=== PATIENT | male | born 1975 | race Caucasian/White ===

== ENCOUNTER 2016-07-21 20:11 | Emergency (ER) | payer BC, OTHER ==
--- NOTE | 2016-07-21 20:15 | PDOC ---
History of Present Illness - General History Source: Patient Exam Limitations: No Limitations - History of Present Illness Initial Comments: 07/21/16 20:28 The patient is a 40 year old male with past medical history of hypertension, hyperlipidemia, and coronary artery disease (on Plavix) who presents to the ED with a laceration on his left hand, in between his thumb and pointer finger. The patient sustained the injury while cutting tiles about 4 hours ago. He reported profuse bleeding which has now subsided. He denies any recent illness, fever, chills, nausea, vomiting, diarrhea, cough, shortness of breath, or chest pain. PAST MEDICAL HISTORY: no significant history PAST SURGICAL HISTORY: no significant history FAMILY HISTORY: no pertinent history SOCIAL HISTORY: Pt lives with family and is employed. MEDICATIONS: reviewed ALLERGIES: As per nursing notes General: No fevers or chills, no weakness, no weight loss HEENT: No change in vision. No sore throat,. No ear pain CardioVascular: No chest pain or shortness of breath Respiratory:No cough, or wheezing. Gastrointestinal: no nausea, vomiting, diarrhea or constipation, No rectal bleeding Genitourinary: No dysuria, hematuria, or frequency Musculoskeletal: No joint or muscle pain or swelling Neurologic: No headache, vertigo, dizziness or loss of consciousness Psychiatric: nor depression Skin: Present: laceration on left hand No rashes or easy bruising Endocrine: no increased thirst or abnormal weight change Allergic: no skin or latex allergy All other systems reviewed and normal GENERAL: The patient is awake, alert, and fully oriented, in no acute distress. HEAD: Normal with no signs of trauma. EYES: Pupils equal, round and reactive to light, extraocular movements intact, sclera anicteric, conjunctiva clear. EXTREMITIES: Normal range of motion, no edema. NEUROLOGICAL: Normal speech, normal gait. PSYCH: Normal mood, normal affect. SKIN: Superficial laceration in web space between thumb and first finger of left hand. No active bleeding, neurovascularly intact. Warm, Dry, normal turgor , no rashes noted. <Areli Barros - Last Filed: 07/21/16 20:28> - General History Source: Patient Exam Limitations: No Limitations - History of Present Illness Initial Comments: 07/21/16 20:34 A portion of this note was documented by scribe services under my direction. I have reviewed the details of the note, within reason, and agree with the documentation. The case summary and management plan written by me. Assessment and plan: This is a 40-year-old male who came in complaining of a laceration in the webspace of his left hand. Patient is on blood thinners so there was a significant amount of bleeding however by the time he got here it had completely stopped. Laceration was cleaned and closed with Dermabond patient discharged. Procedure note laceration repair Laceration was cleaned with peroxide and then closed with Dermabond patient tolerated well <Eduar Woodruff I - Last Filed: 07/21/16 20:38> - General Chief Complaint: Laceration Stated Complaint: LACERATION Time Seen by Provider: 07/21/16 20:14 Past History <Areli Barros - Last Filed: 07/21/16 20:28> <Eduar Woodruff I - Last Filed: 07/21/16 20:38> - Past Medical History Allergies/Adverse Reactions: Allergies Allergy/AdvReac Type Severity Reaction Status Date / Time No Known Allergies Allergy Verified 07/21/16 20:22 Home Medications: Ambulatory Orders Aspirin [Aspirin EC] 81 mg PO DAILY 07/21/16 Atorvastatin Ca [Lipitor] 80 mg PO HS 07/21/16 Clopidogrel Bisulfate [Plavix -] 75 mg PO DAILY 07/21/16 Metoprolol Tartrate 25 mg PO BID 07/21/16 Review of Systems - Review of Systems Able to Perform ROS?: Yes All Other Systems: Reviewed and Negative <Areli Barros - Last Filed: 07/21/16 20:28> *DC/Admit/Observation/Transfer - Attestations Scribe Attestion: 07/21/16 20:31 Documentation prepared by Areli Barros, acting as medical office technician for Eduar Woodruff MD. <Areli Barros - Last Filed: 07/21/16 20:28> <Eduar Woodruff I - Last Filed: 07/21/16 20:38> Diagnosis at time of Disposition: Laceration of hand Qualifiers: Encounter type: initial encounter Laterality: left Qualified Code(s): S61.412A - Laceration without foreign body of left hand, initial encounter - Discharge Dispostion Disposition: HOME Condition at time of disposition: Stable - Referrals Referrals: STAFF,NOT ON [Primary Care Provider] - - Patient Instructions Printed Discharge Instructions: DI for Laceration Repair With Dermabond Additional Instructions: Read over and follow Dermabond instructions. The most important part of it is do not put any lotions creams or ointments on it and keep it dry for 48 hours. Return to the emergency department immediately with ANY new, persistent or worsening symptoms. Continue any medications as previously prescribed by your physician. You should follow up with your primary doctor as soon as possible regarding today's emergency department visit. . Please make sure your doctor reviews the results of your emergency evaluation. Thank you for coming to the Emergency Department today for your care. It was a pleasure to see you today. Please note that your evaluation is INCOMPLETE until you follow-up with your doctor.
[2016-07-21] MEDS ORDERED: DIPHTH,PERTUSS(ACELL),TET 0.5 ML DISP.SYRIN IM ONE (20:29)
[2016-07-21 20:30] VITALS: BP 156/108; PULSE 88; TEMP 97.7; BMI 32.9
== END 2016-07-21 20:45 | disposition home or self-care (01) ==
LOC: FER 20:11
PROC: 3E0234Z Introduction of Serum, Toxoid and Vaccine into Muscle, Percutaneous Approach (ICD-10-PCS; principal; 2016-07-21)
PROC: 0HQGXZZ Repair Left Hand Skin, External Approach (ICD-10-PCS; 2016-07-21)
DX: S61.412A Laceration without foreign body of left hand, initial encounter (principal); W45.8XXA Other foreign body or object entering through skin, initial encounter; Y93.89 Activity, other specified; Y92.9 Unspecified place or not applicable; Y99.0 Civilian activity done for income or pay; Z79.82 Long term (current) use of aspirin; I10 Essential (primary) hypertension; E78.5 Hyperlipidemia, unspecified; I25.10 Atherosclerotic heart disease of native coronary artery without angina pectoris; Z79.01 Long term (current) use of anticoagulants
CPT/HCPCS: 90715; 99282-25

== ENCOUNTER 2017-11-21 18:58 | Emergency (ER) | payer BC, OTHER ==
[2017-11-21] MEDS ORDERED: ACETAMINOPHEN 325 MG TABLET (FP) PO ONE (19:08)
[2017-11-21] MEDS ORDERED: ACETAMINOPHEN 325 MG TABLET (FP) ONE (19:14)
--- NOTE | 2017-11-21 19:19 | PDOC ---
History of Present Illness - General History Source: Patient Exam Limitations: No Limitations - History of Present Illness Initial Comments: 11/21/17 20:09 The patient is a 41 year old male with a significant PMH of hypertension, hyperlipidemia, and CAD who presents to the emergency department with right heller redness and pain for 2 days. The patient reports associated swelling with his heller redness. The patient describes his leg pain as sharp, a 10/10 in severity and worsened with movement. the patient reports that he took 2 tylenols this morning with little relief. The patient reports that he went jet skiing 2 days ago and there after he took a nap and woke up experiencing his right leg pain. The patient also reports associated chills, body aches, and fatigue. The patient states that he went to an urgent care facility yesterday by which he had an x- ray done with no specific findings. The patient also reports a suprapubic rash for 2 days as well. The patient denies any sort of trauma. He denies any numbness, weakness, or tingling sensation . he denies any nausea, vomit, diarrhea,constipation or urinary symptoms. He denies any chest pain, shortness of breath, headache and dizziness. The patient denies any other complaints. 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 MEDICATIONS: reviewed ALLERGIES: As per nursing notes General: (+)chills. No fevers. no weakness, no weight loss HEENT: No change in vision. No sore throat,. No ear pain CardioVascular: No chest pain or shortness of breath Respiratory:No cough, or wheezing. Gastrointestinal: (+)fatigue. no nausea, vomiting, diarrhea or constipation, No rectal bleeding Genitourinary: No dysuria, hematuria, or frequency Musculoskeletal: No joint or muscle pain or swelling Neurologic: No headache, vertigo, dizziness or loss of consciousness Psychiatric: nor depression Skin:(+)right leg/heller redness and itching. No easy bruising Endocrine: no increased thirst or abnormal weight change Allergic: no skin or latex allergy All other systems reviewed and normal GENERAL: The patient is awake, alert, and fully oriented, in no acute distress. HEAD: Normal with no signs of trauma. EYES: Pupils equal, round and reactive to light, extraocular movements intact, sclera anicteric, conjunctiva clear. EXTREMITIES: (+) right anterior leg,mid heller area of excoriation secondary to itchy rash patient had earlier. Surrounding erythema with increased warmth. no palpable abscess. No ascendancy lymphangitis Normal range of motion, neurovascular in tact NEUROLOGICAL: Normal speech, normal gait. PSYCH: Normal mood, normal affect. SKIN: Warm, Dry, normal turgor, no rashes or lesions noted. <Abbi Vallecillo - Last Filed: 11/21/17 20:09> - General History Source: Patient Exam Limitations: No Limitations - History of Present Illness Initial Comments: 11/21/17 19:36 A portion of this note was documented by scribe services under my direction. I have reviewed the details of the note, within reason, and agree with the documentation. The case summary and management plan written by me. Assessment and plan: This is a 41-year-old male who comes in with cellulitis of his anterior heller 1 day. Patient had a fever of 102.5. There is no associated ascending lymphangitis. Patient given bank and Zosyn. Lab work including CBC, comp, blood cultures, urine, urine culture were sent. 11/21/17 21:12 Reevaluation. Patient feels better after IV fluids Toradol and antibiotics. The extent of the erythema was drawn with a skin marker and patient was told that if it is not better in 48 hours or worse in 24 hours she needs to come back and expect to be admitted for IV antibiotics. Patient was given vancomycin and Zosyn here in the ED Patient discharged home on by mouth Bactrim 2 tablets twice a day. <Eduar Woodruff I - Last Filed: 11/21/17 21:17> - General Chief Complaint: Redness To Affected Area Stated Complaint: FEVER, RIGHT HELLER REDNESS/PAIN Time Seen by Provider: 11/21/17 19:19 Past History <Abbi Vallecillo - Last Filed: 11/21/17 20:09> - Past Medical History Cardiac Disorders: Yes (MS, STENT X2 MAY 2016) COPD: No HTN: Yes Hypercholesterolemia: Yes - Suicide/Smoking/Psychosocial Hx Smoking History: Never smoked Hx Alcohol Use: Yes (OCCASIONAL) Drug/Substance Use Hx: No Substance Use Type: None <Eduar Woodruff I - Last Filed: 11/21/17 21:17> - Past Medical History Allergies/Adverse Reactions: Allergies Allergy/AdvReac Type Severity Reaction Status Date / Time No Known Allergies Allergy Verified 11/21/17 19:08 Home Medications: Ambulatory Orders Aspirin [Aspirin EC] 81 mg PO DAILY 07/21/16 Atorvastatin Ca [Lipitor] 80 mg PO DAILY 07/21/16 Amlodipine Besylate [Norvasc -] 10 mg PO DAILY 11/21/17 Lisinopril 5 mg PO DAILY 11/21/17 Montelukast Sodium [Singulair] 10 mg PO DAILY 11/21/17 *Physical Exam - Vital Signs Last Vital Signs Temp Pulse Resp BP Pulse Ox 102.5 F H 95 H 16 111/74 99 11/21/17 19:05 11/21/17 19:05 11/21/17 19:05 11/21/17 19:05 11/21/17 19:05 <Abbi Vallecillo - Last Filed: 11/21/17 20:09> - Vital Signs Last Vital Signs Temp Pulse Resp BP Pulse Ox 102.5 F H 95 H 16 111/74 99 11/21/17 19:05 11/21/17 19:05 11/21/17 19:05 11/21/17 19:05 11/21/17 19:05 <Eduar Woodruff I - Last Filed: 11/21/17 21:17> ED Treatment Course - LABORATORY CBC & Chemistry Diagram: 11/21/17 19:30 11/21/17 19:30 - ADDITIONAL ORDERS Additional order review: Laboratory Results 11/21/17 11/21/17 19:30 19:30 Sodium 132 L Potassium 4.2 Chloride 100 Carbon Dioxide 26 Anion Gap 6 L BUN 14 Creatinine 0.9 Creat Clearance w eGFR > 60 Random Glucose 148 H Calcium 8.3 L Total Bilirubin 0.8 AST 23 ALT 34 Alkaline Phosphatase 88 Total Protein 7.4 Albumin 4.1 Urine Color Yellow Urine Appearance Clear Urine pH 6.0 Ur Specific [place] 1.020 Urine Protein Trace Urine Glucose (UA) Negative Urine Ketones Trace Urine Blood Trace-intact H Urine Nitrite Negative Urine Bilirubin Negative Urine Urobilinogen 1.0 Ur Leukocyte Esterase Negative 11/21/17 19:30 RBC 5.06 MCV 88.0 MCHC 34.7 RDW 12.3 MPV 7.9 Neutrophils % No Result Required. Lymphocytes % No Result Required. - Medications Given in the ED: ED Medications Discontinued Medications Generic Name Dose Route Start Last Admin Trade Name Freq PRN Reason Stop Dose Admin Acetaminophen 650 mg 11/21/17 19:08 11/21/17 19:15 Tylenol - PO 11/21/17 19:09 650 mg ONCE ONE Administration Ketorolac Tromethamine 30 mg 11/21/17 19:26 11/21/17 19:49 Toradol Injection - IVPUSH 11/21/17 19:27 30 mg ONCE ONE Administration Vancomycin HCl 1,000 mg 11/21/17 19:34 11/21/17 19:49 Vancomycin (Pre-Docked) IVPB 11/21/17 19:35 1,000 mg ONCE ONE Administration Protocol <Abbi Vallecillo - Last Filed: 11/21/17 20:09> - LABORATORY CBC & Chemistry Diagram: 11/21/17 19:30 11/21/17 19:30 - Medications Given in the ED: ED Medications Discontinued Medications Generic Name Dose Route Start Last Admin Trade Name Freq PRN Reason Stop Dose Admin Acetaminophen 650 mg 11/21/17 19:08 11/21/17 19:15 Tylenol - PO 11/21/17 19:09 650 mg ONCE ONE Administration <Eduar Woodruff I - Last Filed: 11/21/17 21:17> *DC/Admit/Observation/Transfer - Attestations Scribe Attestion: 11/21/17 20:10 Documentation prepared by Abbi Vallecillo, acting as medical science liaison for Eduar Woodruff MD. <Abbi Vallecillo - Last Filed: 11/21/17 20:09> - Discharge Dispostion Decision to Admit order: No <Eduar Woodruff I - Last Filed: 11/21/17 21:17> Diagnosis at time of Disposition: Cellulitis of right leg - Discharge Dispostion Disposition: HOME Condition at time of disposition: Good - Patient Instructions Additional Instructions: Go to the pharmacy in the morning and get your prescription for Bactrim when you get to take 2 tablets twice a day for the next 10 days. If you're leg is worse tomorrow evening come back as you need to be admitted for IV antibiotics. If you are not any better by Saturday evening come back for admission. Tylenol or Motrin as needed for pain. Return to the emergency department immediately with ANY new, persistent or worsening symptoms. Continue any medications as previously prescribed by your physician. You should follow up with your primary doctor as soon as possible regarding today's emergency department visit. . Please make sure your doctor reviews the results of your emergency evaluation. Thank you for coming to the Emergency Department today for your care. It was a pleasure to see you today. Please note that your evaluation is INCOMPLETE until you follow-up with your doctor.
[2017-11-21] MEDS ORDERED: SODIUM CHLORIDE 1,000 ML IV STA (19:20)
[2017-11-21] MEDS ORDERED: KETOROLAC TROMETHAMINE 30 MG/1 ML VIAL IVPUSH ONE (19:26)
[2017-11-21] MEDS ORDERED: VANCOMYCIN 1 GRAM (PRE-DOCKED) 1,000 MG/250 ML BAG IVPB ONE (19:34)
[2017-11-21] MEDS ORDERED: PIPERACILLIN/TAZOB 3.375 GM 3.375 GM in DEXTROSE 5%-WATER - 50 ML IVPB ONE (19:35)
[2017-11-21 19:37] VITALS: BP 111/74; PULSE 95; BMI 34.3
[2017-11-21] MEDS ORDERED: VANCOMYCIN 1,000 MG VIAL (RESTRICTED TO ID ONLY) ONE (19:38)
[2017-11-21] MEDS ORDERED: PIPERACILLIN/TAZOBACTAM 3.375 GM VIAL IVPB ONE (19:38)
[2017-11-21] MEDS ORDERED: KETOROLAC TROMETHAMINE 30 MG/1 ML VIAL ONE (19:38)
[2017-11-21 19:47] LABS: URINE APPEARANCE Clear; URINE BILIRUBIN Negative (NEGATIVE); URINE GLUCOSE (UA) Negative (NEGATIVE); URINE KETONE Trace (NEGATIVE); URINE LEUK ESTERASE Negative (NEGATIVE); URINE NITRITE Negative (NEGATIVE); URINE PROTEIN Trace (NEGATIVE)
[2017-11-21 19:48] LABS: URINE COLOR YELLOW
[2017-11-21 19:53] LABS: HEMATOCRIT 44.5 % (35.4-49); HEMOGLOBIN 15.5 GM/dl (11.7-16.9); MCH 30.6 pg (25.7-33.7); MCHC 34.7 g/dl (32.0-35.9); MEAN PLT VOLUME 7.9 fl (7.5-11.1); PLATELET COUNT 262 K/MM3 (134-434); RBC 5.06 M/mm3 (4.00-5.60); RDW 12.3 % (11.9-15.9); WHITE BLOOD COUNT 19.3 K/mm3 (4.0-10.8)
[2017-11-21 20:02] LABS: ALBUMIN 4.1 g/dl (3.5-5.0); ALK PHOS 88 U/L (32-92); ANION GAP 6 (8-16); BILIRUBIN,TOTAL 0.8 mg/dl (0.2-1.0); BLOOD UREA NITROGEN 14 mg/dl (7-18); CALCIUM 8.3 mg/dl (8.4-10.2); CHLORIDE 100 mmol/L (98-107); CO2 26 mmol/L (22-28); CREATININE 0.9 mg/dl (0.6-1.3); GLUCOSE,RANDOM 148 mg/dl (74-106); POTASSIUM 4.2 mmol/L (3.5-5.1); SGOT/AST 23 U/L (10-42); SGPT/ALT 34 U/L (10-40); SODIUM 132 mmol/L (136-145); TOT PROT 7.4 g/dl (6.4-8.3)
[2017-11-21 20:28] LABS: PLATELET ESTIMATE ADEQUATE
[2017-11-21 20:33] LABS: URINE BACTERIA FEW /hpf (NEGATIVE); URINE WBC 0-2 (0-2)
[2017-11-21 20:44] VITALS: TEMP 99
== END 2017-11-21 22:05 | disposition home or self-care (01) ==
LOC: FER 18:58
PROC: 3E03329 Introduction of Other Anti-infective into Peripheral Vein, Percutaneous Approach (ICD-10-PCS; principal; 2017-11-21)
PROC: 3E0333Z Introduction of Anti-inflammatory into Peripheral Vein, Percutaneous Approach (ICD-10-PCS; 2017-11-21)
PROC: 3E0337Z Introduction of Electrolytic and Water Balance Substance into Peripheral Vein, Percutaneous Approach (ICD-10-PCS; 2017-11-21)
DX: L03.115 Cellulitis of right lower limb (principal); I10 Essential (primary) hypertension; E78.5 Hyperlipidemia, unspecified; I25.10 Atherosclerotic heart disease of native coronary artery without angina pectoris; I25.2 Old myocardial infarction; Z86.73 Personal history of transient ischemic attack (TIA), and cerebral infarction without residual deficits; Z79.82 Long term (current) use of aspirin
CPT/HCPCS: 36415; 80053; 81003; 81015; 83605; 85025; 87040; 87086; 99282-25; J7030

== ENCOUNTER 2019-04-24 21:17 | Emergency (ER) | payer SELFPAY ==
[2019-04-24 21:23] VITALS: BP 150/96; PULSE 105; TEMP 98.3; BMI 35.2
[2019-04-24] MEDS ORDERED: KETOROLAC TROMETHAMINE 30 MG/1 ML VIAL IVPUSH ONE (21:41)
[2019-04-24] MEDS ORDERED: KETOROLAC TROMETHAMINE 30 MG/1 ML VIAL ONE (21:56)
--- NOTE | 2019-04-24 22:22 | PDOC ---
Documentation entered by Malina Stuart SCRIBE, acting as scribe for Eduar Woodruff MD. Eduar Woodruff MD: This documentation has been prepared by the Narciso glass Sammi, SCRIBE, under my direction and personally reviewed by me in its entirety. I confirm that the documentation accurately reflects all work, treatment, procedures, and medical decision making performed by me. History of Present Illness - General Chief Complaint: Pain Stated Complaint: LT ARM PAIN Time Seen by Provider: 04/24/19 21:19 History Source: Patient Exam Limitations: No Limitations - History of Present Illness Initial Comments: 04/24/19 21:32 The patient is a 43 year old male who presents for evaluation of 1 day of sudden onset, intermittent left lower extremity and left arm pain. The patient states upon waking up this morning he felt left thigh pain radiating down the left leg with onset of left upper extremity pain throughout the day. Denies trauma or injury. He reports taking 2 advil this morning with no relief. Of note, the patient works outside but denies any tick or other bug bites. Denies chest pain, shortness of breath, headache and dizziness. Denies fever, chills, nausea, vomiting, diarrhea and constipation. Denies dysuria, frequency, urgency and hematuria. 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 MEDICATIONS: reviewed ALLERGIES: As per nursing notes Adult ROS General: No fevers or chills, no weakness, no weight loss HEENT: No change in vision. No sore throat,. No ear pain CardioVascular: No chest pain or shortness of breath Respiratory:No cough, or wheezing. Gastrointestinal: no nausea, vomiting, diarrhea or constipation, No rectal bleeding Genitourinary: No dysuria, hematuria, or frequency Musculoskeletal: +LLE pain +LUE pain Neurologic: No headache, vertigo, dizziness or loss of consciousness Skin: No rashes or easy bruising All other systems reviewed and normal Adult Exam: General: Well-nourished well-developed individual, no acute distress HEENT: Throat: Normal, tonsils normal, no erythema or exudate Neck: Supple, no meningeal signs, no lymphadenopathy Eyes::Pupils equal reactive and round, extraocular motion intact Chest: Nontender to palpation Cardiac: S1-S2 normal, regular rate and rhythm, no murmurs rubs or gallops Respiratory: Lungs clear to auscultation bilateral Abdomen: Soft, nondistended, normal bowel sounds, nontender to palpation diffusely Extremities: Warm, dry, no cyanosis, clubbing, or edema Skin: No rashes Neuro: Alert and oriented x3, nonfocal exam, grossly intact, normal gait Psych: Normal mood and affect 04/24/19 22:52 Assessment and plan: This is a 43-year-old male who comes in complaining of left arm left leg pain x1 day. Patient history is significant and that he had an NM in the past. Patient did have a cardiogram that showed an old inferior wall NM but otherwise no acute ST-T wave changes. Patient patient had a work-up including CBC comp and cardiac enzymes. Patient' s work-up shows that he is got some dehydration as well as slightly elevated sugar which is also most likely contributing to his dehydration. Patient symptoms could be secondary to hemoconcentration. Given a negative troponin and more than 12 hours of a sharp nonradiating pain in his deltoid area in addition to the pain in his leg it is unlikely this is cardiac in origin. Discussed with patient the importance to drink more fluids and stay hydrated as well as the importance of following up with his primary care doctor next week. Patient discharged home Past History - Past Medical History Allergies/Adverse Reactions: Allergies Allergy/AdvReac Type Severity Reaction Status Date / Time No Known Allergies Allergy Verified 11/26/17 00:58 Home Medications: Ambulatory Orders Aspirin [Aspirin EC] 81 mg PO DAILY 07/21/16 Atorvastatin Ca [Lipitor] 80 mg PO DAILY 07/21/16 Amlodipine Besylate [Norvasc -] 10 mg PO DAILY 11/21/17 Lisinopril 5 mg PO DAILY 11/21/17 Acetaminophen [Tylenol .Regular Strength -] 650 mg PO Q4H PRN tablet 11/27/17 Cardiac Disorders: Yes (NM, STENT X2 MAY 2016) COPD: No HTN: Yes Hypercholesterolemia: Yes - Surgical History Cardiac Surgery: Yes (2 STENTS) - Psycho Social/Smoking Cessation Hx Smoking History: Unknown if ever smoked Have you smoked in the past 12 months: No Information on smoking cessation initiated: No Hx Alcohol Use: No Drug/Substance Use Hx: No Substance Use Type: None *Physical Exam - Vital Signs Last Vital Signs Temp Pulse Resp BP Pulse Ox 98.3 F 105 H 16 150/96 98 04/24/19 21:19 04/24/19 21:19 04/24/19 21:19 04/24/19 21:19 04/24/19 21:19 Heart Score/ECG Review - History History: Slightly suspicious - Electrocardiogram EKG: Normal - Age Age: 45-65 - Risk Factors Based on the list above the patient has:: >/=3 risk factors or Hx atherosclerotic disease - Troponin Troponin: </= normal limit - Score Heart Score - Total: 3 ED Treatment Course - LABORATORY CBC & Chemistry Diagram: 04/24/19 22:00 04/24/19 22:00 - Medications Given in the ED: ED Medications Discontinued Medications Generic Name Dose Route Start Last Admin Trade Name Hubert PRN Reason Stop Dose Admin Ketorolac Tromethamine 30 mg 04/24/19 21:41 04/24/19 22:02 Toradol Injection - IVPUSH 04/24/19 21:42 30 mg ONCE ONE Administration Discharge - Discharge Information Problems reviewed: Yes Clinical Impression/Diagnosis: Arm and leg pain Condition: Stable - Admission No - Follow up/Referral - Patient Discharge Instructions Additional Instructions: And to follow-up with your doctor next week Your blood work shows that you have some dehydration. It is important that you increase her fluid intake, and follow-up with your doctor next week Return to the emergency department immediately with ANY new, persistent or worsening symptoms. Continue any medications as previously prescribed by your physician. You should follow up with your primary doctor as soon as possible regarding today's emergency department visit. . Please make sure your doctor reviews the results of your emergency evaluation. Thank you for coming to the Emergency Department today for your care. It was a pleasure to see you today. Please note that your evaluation is INCOMPLETE until you follow-up with your doctor. - Post Discharge Activity
[2019-04-24 22:23] LABS: BASO % 0.5 % (0-2.0); EOS % 2.8 % (0-4.5); HEMATOCRIT 50.5 % (35.4-49); HEMOGLOBIN 17.1 GM/dl (11.7-16.9); MCH 30.5 pg (25.7-33.7); MCHC 33.8 g/dl (32.0-35.9); MEAN PLT VOLUME 8.3 fl (7.5-11.1); MONO % 5.5 % (3.8-10.2); NEUT % 68.2 % (42.8-82.8); PLATELET COUNT 310 K/MM3 (134-434); RBC 5.61 M/mm3 (4.00-5.60); RDW 12.2 % (11.9-15.9)
[2019-04-24 22:27] LABS: ALBUMIN 4.2 g/dl (3.4-5.0); BILIRUBIN,TOTAL 0.5 mg/dl (0.2-1); CALCIUM 9.1 mg/dl (8.5-10); CREATININE 1.4 mg/dl (0.55-1.3); TOT PROT 7.5 g/dl (6.4-8.2)
--- NOTE | 2019-04-27 11:58 | EKG ---
Test Reason : Blood Pressure : / mmHG Vent. Rate : 088 BPM Atrial Rate : 088 BPM P-R Int : 130 ms QRS Dur : 082 ms QT Int : 338 ms P-R-T Axes : 045 006 002 degrees QTc Int : 408 ms NORMAL SINUS RHYTHM INFERIOR INFARCT , AGE UNDETERMINED ABNORMAL ECG WHEN COMPARED WITH ECG OF 26-NOV-2017 02:08, NO SIGNIFICANT CHANGE WAS FOUND Confirmed by MARIO JOHANSEN, LORIN ([id number]) on 04/27/2019 11:58:10 AM Referred By: MELCHOR MORENO Confirmed By:LORIN MARTIN MD
== END 2019-04-24 22:58 | disposition home or self-care (01) ==
LOC: FER 21:17
PROC: 3E0333Z Introduction of Anti-inflammatory into Peripheral Vein, Percutaneous Approach (ICD-10-PCS; principal; 2019-04-24)
DX: M79.605 Pain in left leg (principal); M79.602 Pain in left arm; Z95.5 Presence of coronary angioplasty implant and graft; I10 Essential (primary) hypertension; I25.2 Old myocardial infarction; E78.00 Pure hypercholesterolemia, unspecified
CPT/HCPCS: 36415; 80053; 82550; 82553; 84484; 85025; 86618; 93005; 99283-25